=== PATIENT | male | born 1960 | race Caucasian/White ===

== ENCOUNTER 2021-03-31 08:04 | Outpatient (CLI) | payer OTHER, SELFPAY ==
--- NOTE | 2021-03-31 08:14 | CT_ITS ---
WS: [id number] CTA HEAD TECHNIQUE: Contrast enhanced CTA of the head with coronal and sagittal reformatted images and maximum intensity projection (MIP) images. NASCET criteria utilized. CLINICAL INFORMATION: ATYPICAL FACIAL PAIN, HEADACHE COMPARISON: MRI 2017 DLP: 1369.[address] scans at [facility] use at least one of these dose optimization techniques: automated e xposure control; mA and/or kV adjustment per patient size (includes targeted exams where dose is matc hed to clinical indication); or iterative reconstruction. FINDINGS: No evidence of intracranial hemorrhage or mass effect on the noncontrast CT. Minimal small vessel tawanna nges moderate parenchymal volume loss. Paranasal sinuses and mastoid air cells well aerated. INTRACRANIAL CTA: Distal vertebral arteries are patent. Basilar artery is patent. Normal vascularity to the [place] territo ry bilaterally. Both ICAs are patent at the skull base. Normal vascularity to the [place] and MCA territories bilaterally . No evidence of high-grade proximal stenosis or aneurysm. CT/CT angio head [id number] IMPRESSION: 1. Normal intracranial CTA. 2. No flow-limiting stenosis or aneurysm. 3. Noncontrast CT head is unremarkable with minimal small vessel changes and m ild parenchymal volume loss.
[2021-03-31 08:40] LABS: Blood Urea Nitrogen 14 mg/dL (8-23); Glomerular Filtration Rate 85.5 mL/min (90-130)
[2021-03-31] MEDS: iohexol 350 mg/mL 100 mL Btl IV (08:52)
== END 2021-03-31 08:05 | disposition home or self-care (01) ==
PROVIDERS: Visit Provider Otolaryngology
DX: G50.1 Atypical facial pain (principal); R51.9 Headache, unspecified
CPT/HCPCS: 70496; 82565; 84520; Q9967

== ENCOUNTER 2021-07-04 09:27 | Outpatient (CLI) | payer OTHER, SELFPAY ==
[2021-07-04 09:37] VITALS: BP 149/91; PULSE 71; RESP 16; TEMP 36.4; O2SAT 98; BMI 21.8
[2021-07-04 10:08] VITALS: BP 138/78; PULSE 56; RESP 16; TEMP 36.3; O2SAT 99
[2021-07-04 11:04] VITALS: BP 148/86; PULSE 64; RESP 16; TEMP 36.6; O2SAT 99
== END 2021-07-04 09:28 | disposition home or self-care (01) ==
LOC: OPS 09:33
PROVIDERS: PCP Internal Medicine; Visit Provider Nurse Practitioner Family
DX: U07.1 COVID-19 (principal)
CPT/HCPCS: 96365